=== PATIENT | male | born 1955 | race Caucasian/White ===

== ENCOUNTER 2022-01-02 07:12 | Inpatient (IN) | payer MEDICARE ==
[~2022-01-02] VITALS: Ht 182.9 cm; Wt 80.0 kg
[2022-01-02 08:33] LABS: Hematocrit 42.8 % (37.0-53.0); Hemoglobin 15.2 g/dL (13.5-17.5); Mean Corpuscular HGB Conc 35.5 g/dL (31.5-36.5); Mean Corpuscular Volume 87 fL (80-100); Mean Platelet Volume 9.9 fL (9.1-12.4); Platelet Count 229 K/mm3 (150-400); RDW Coefficient Variation 14.2 % (11.7-14.2); RDW Standard Deviation 45.5 fL (35.1-46.3); Red Blood Cell Count 4.91 M/mm3 (4.30-5.90); White Blood Cell Count 33.41 K/mm3 (4.00-11.30)
[2022-01-02 08:56] LABS: Alanine Aminotransfer (ALT/SGP 38 U/L (12-78); Albumin/Globulin Ratio 0.5 (0.8-1.8); Alk Phos 108 U/L (50-136); Aspartate Aminotrans (AST/SGOT 90 U/L (12-37); Bilirubin, Direct 0.4 mg/dL (0.0-0.3); Bilirubin, Indirect 0.9 mg/dL (0.1-0.7); Bilirubin, Total 1.3 mg/dL (0.1-1.0); Ethanol (Alcohol), Blood, Med <3 mg/dL; Globulin, Blood 4.4 g/dL (2.2-4.0); Magnesium, Blood 1.6 mg/dL (1.6-2.4); Total Protein, Blood 6.4 g/dL (6.4-8.2)
[2022-01-02 08:56] LABS: Base Excess Venous 0.4 mmol/L; Bicarbonate Venous 24.3 mmol/L (24.0-30.0); PCO2 Venous 38.1 mmHg (38-42); PO2 Venous 38.6 mmHg (38-42); pH Blood Venous 7.42 (7.34-7.37)
[2022-01-02 09:15] LABS: Influenza A, PCR NEGATIVE (NEGATIVE); Influenza B, PCR NEGATIVE (NEGATIVE); Resp Syncytial Virus, PCR NEGATIVE (NEGATIVE); SARS-Cov-2 (COVID-19) PCR, MMC NEGATIVE (NEGATIVE)
[2022-01-02 09:29] LABS: BAND PERCENT MAN 66 % (0-8); BASOPHILS PERCENT MAN 0 % (0-2); EOSINOPHILS PERCENT MAN 0 % (0-6); LYMPHOCYTES ABSOLUTE MAN 0.33 K/mm3 (0.84-5.20); LYMPHOCYTES PERCENT MAN 1 % (21-46); METAMYELOCYTE ABSOLUTE MAN 0.33 K/mm3 (0.00-0.00); METAMYELOCYTE PERCENT MAN 1 % (0-0); MONOCYTES PERCENT MAN 3 % (4-13); NEUTROPHILS ABSOLUTE MAN 31.73 K/mm3 (1.96-9.15); SEG NEUTROPHILS PERCENT MAN 29 % (41-73); TOTAL CELLS COUNTED 100
[2022-01-02 09:33] LABS: Calcium, Blood 8.3 mg/dL (8.5-10.1); Creatinine, Blood 0.71 mg/dL (0.60-1.20); Potassium, Blood 3.7 mmol/L (3.5-5.5)
[2022-01-02 09:41] LABS: Source, Urine Straight Cath
[2022-01-02 09:52] LABS: Appearance, Urine Clear (Clear); Bilirubin, Urine Neg (Neg); Blood, Urine 5+ (Neg); Color, Urine Yellow (P-Yellow); Glucose Qualitative, Urine Neg (Neg); Ketones, Urine 1+ (Neg); Leukocyte Esterase, Urine 3+ (Neg); Nitrite, Urine Neg (Neg); Protein, Urine 2+ (Neg); Specific Gravity, Urine 1.015 (1.003-1.022); Urobilinogen, Urine NORM (Normal)
[2022-01-02 10:02] LABS: Bacteria Few /hpf; Squamous Epithelial Cells Few /hpf (Few)
[2022-01-02 10:03] LABS: U Amphetamine Screen DETECTED; U Barbituate Screen Not Detected; U Benzodiazapine Screen Not Detected; U Cocaine Screen Not Detected; U Methadone Screen Not Detected; U Methamphetamine Screen Not Detected
[2022-01-02 10:04] LABS: U Buprenorphine Screen Not Detected; U Cannabinoids Screen Not Detected; U Opiates Screen DETECTED; U Oxycodone Screen Not Detected; U Phencyclidine Screen Not Detected; U Propoxyphene Screen Not Detected
[2022-01-02 14:48] LABS: Anti-Xa UFH, PHA Monitoring <0.10 IU/mL; International Normalized Ratio 1.42; Prothrombin Time Results 14.6 Sec (9.7-11.5)
--- NOTE | 2022-01-02 14:58 | NUR ---
Provider call Dr. Leal called in regards to patients elevated HR 130-160's , Diltiazem 20 mg/hr currently infusing via PICC. Levophed remains on SB. Pt BP 158/121. NS stopped and to be switched to LR. Pt still unable to communicate, garbled speech.
--- NOTE | 2022-01-02 16:00 | NUR ---
Arrival to ICU 16 at 1213 Pt arrives to ICU 16 via gurney accompained by ED nurse. AMS, garbled speech. Moving all extrems, unable to follow directions. Started on Levophed, Diltiazem, and Heparin see flow sheet, infusing via PICC to left upper arm. Levophed placed on SB at 1400. On 3 L NC, SPO2 > 90%. Febrile upon arrival, flushed in apperance. BT active. Wu yin place with dark/clear output. CIWA of 16, tremors, anxious, and agitated. Pulling in lines/tubes/cords, SWB in place. AFIB WITH RVR continues to be present.
--- NOTE | 2022-01-02 16:16 | NUR ---
Provider call- Hypoglycemia Dr. Leal called in regards to glucose of 67. New orders recieved for 1/2 AMP of D50 and recheck in 40 minutes. If still low, start D5 1/2 NS at 75 cc/hr.
--- NOTE | 2022-01-02 17:54 | NUR ---
Updated patients Spoke to Emmanuelle Abrams, , . Pt states has "stopped drinking and coughing" "Lost house and living with sister." Updated on current care being provided and all questions answered.
--- NOTE | 2022-01-02 18:35 | NUR ---
Provider call, elevated HR 130'S Dr. Leal called in regards to elevated HR and provider to place new order for Digoxin.
--- NOTE | 2022-01-02 19:42 | NUR ---
Shift Summary Heparin 15 u/kg/hr, Diltiazem 20 mg/hr, and LR @ 50 ml/hr, infusing via PICC to LEAH. Levophed remains on SB. AMS remains, unable to follow commands, garbled speeched. Moving all extrems, pulling at SWB. LS clear, 2 L via NC, spo2 > 90%. BT active x 4. Pt diaphortic, febrile, 101.8, ice packs to be placed. Wu in place with dark yellow/clear output. Remains in AFIB. BP stable. Dr. Leal contacted by charge nurse, Hawk, in regards to critical blood cluture regards. Spoke to patients and updated on care being provided.
[2022-01-03 04:03] LABS: Hematocrit 36.1 % (37.0-53.0); Hemoglobin 12.7 g/dL (13.5-17.5); LYMPHOCYTES ABSOLUTE AUTO 0.41 K/mm3 (0.84-5.20); LYMPHOCYTES PERCENT AUTO 1 % (21-46); MONOCYTES ABSOLUTE AUTO 0.87 K/mm3 (0.16-1.47); MONOCYTES PERCENT AUTO 2 % (4-13); Mean Corpuscular HGB 30.4 pg (26.0-34.0); Mean Corpuscular HGB Conc 35.2 g/dL (31.5-36.5); Mean Corpuscular Volume 86 fL (80-100); Mean Platelet Volume 9.7 fL (9.1-12.4); Platelet Count 173 K/mm3 (150-400); RDW Coefficient Variation 14.3 % (11.7-14.2); RDW Standard Deviation 45.4 fL (35.1-46.3); Red Blood Cell Count 4.18 M/mm3 (4.30-5.90); White Blood Cell Count 36.66 K/mm3 (4.00-11.30)
[2022-01-03 04:06] LABS: BASOPHILS ABSOLUTE AUTO 0.02 K/mm3 (0.00-0.23); BASOPHILS PERCENT AUTO 0 % (0-2); EOSINOPHILS PERCENT AUTO 0 % (0-6); IMMATURE GRAN ABSOLUTE AUTO 0.47 K/mm3 (0.00-0.10); IMMATURE GRAN PERCENT AUTO 1 % (0-1); NEUTROPHILS ABSOLUTE AUTO 34.89 K/mm3 (1.96-9.15); NEUTROPHILS PERCENT AUTO 95 % (41-73)
[2022-01-03 04:25] LABS: Bun/Creatinine Ratio 17.4 (12.0-20.0); Calcium, Blood 7.7 mg/dL (8.5-10.1); Creatinine, Blood 0.63 mg/dL (0.60-1.20); Potassium, Blood 2.6 mmol/L (3.5-5.5)
[2022-01-03 05:32] LABS: BAND PERCENT MAN 13 % (0-8); BASOPHILS PERCENT MAN 0 % (0-2); EOSINOPHILS PERCENT MAN 0 % (0-6); MONOCYTES ABSOLUTE MAN 2.19 K/mm3 (0.16-1.47); MONOCYTES PERCENT MAN 6 % (4-13); NEUTROPHILS ABSOLUTE MAN 34.46 K/mm3 (1.96-9.15); SEG NEUTROPHILS PERCENT MAN 81 % (41-73); TOTAL CELLS COUNTED 100
--- NOTE | 2022-01-03 07:10 | NUR ---
SHIFT SUMMARY PERIODIC HYPOXIC EVENTS T/O NIGHT. DIFFICULT TO OBTAIN PROPER SPO2 READING ON FINGERS, TOES, EARS, AND FOREHEAD. DEEP ORAL SUCTIONING REQUIRED FREQUENTLY D/T VERY WEAK COUGH AND DIFFICULTY CLEARING SECRETIONS. 4LPM VIA NC WITH ETCO2 18-22. SPO2 87-100%. AFIB W/RVR CONTINUES WITH RATE 100'S-110'S. CARDIZEM REMAINS AT 20MG/HR AND DIGOXIN STARTED LAST NIGHT-ONE LOADING DOSE OF 0.25MG AND ONE SCHEDULED DOSE OF 0.125MG IV ADMINISTERED.
--- NOTE | 2022-01-03 08:29 | NUR ---
ASSUMPTION OF CARE RECEIVED BEDSIDE REPORT FROM CORBY TAPIA AT 0720. PATIENT WITH EYES CLOSED, MOANED A VERBAL RESPONSE AND WAS RESTLESS IN BED. ATTEMPTED TO WAKE PATIENT UP, PATIENT FIRMLY CLOSED EYES AND SAID "NO". DID NOT ENGAGE IN OTHER QUESTIONS. SP02 WITH NO PLETH AND LOW READING, REPOSITIONED FROM FOREHEAD TO FINGER WITH ACCURATE READINGL. 02 AT 6L VIA C02 NC CANNULA WITH CO2 14-16. HEART RATE 120'S WITH CARDIZEM AT 20MG/HR. LR AT 50ML/HR AND KCL INFUSING ORDERED. DR. GIL ROUNDED AT BEDSIDE AT 0800 WITH NEW ORDERS, D/C'D PO ANTIBIOTICS DUE TO NPO STATUS, INCREASED FLUID RATE TO 74ML/HR AND DISCUSSED HEART RATE CONTROL. WILL DRAW ADDITIONAL BLOOD CULTURES AND TREAT PRESCRIBED.
--- NOTE | 2022-01-03 09:40 | NUR ---
CHANGE PATIENT TACHYPNEIC RATE 40-50'S, SP02 85%. 15L OXIMIZER PLACED, ORAL CARE PROVIDED AND SUCTIONED THICK, GONZALEZ SPUTUM VIA ORALLY. CALLED DR. GIL AT 0830 TO REPORT PATIENT'S O2 STATUS CHANGE. STAT ABG AND CXR ORDERED AND COMPLETED. DR. GIL TO ROOM AT 0930, PATIENT RESP RATE DECREASED TO 30'S AT THIS TIME. SP02 90-95% ON 15L OXIMIZER. ECHO CURRENTLY TAKING PLACE AT BEDSIDE. DR. CURRAN CONSULTED AT THIS TIME.
--- NOTE | 2022-01-03 15:27 | NUR ---
UPDATE REVIEWED PATIENT'S RESP STATUS WITH DR. CURRAN. CURRENTLY NO CHANGES TO CARE. WILL CONTINUE TO MONITOR.
--- NOTE | 2022-01-03 16:06 | NUR ---
DR. CURRAN TO ROOM, PATIENT STILL TACHYPNEIC WITH SP02 88% AND ABOVE. DR CURRAN WAS OKAY WITH THAT RANGE AT THIS TIME, REMAINS ON 15L OXYMIZER. PATIENT REPOSITIONED AND OPENED EYES. VERY IRRITABLE AND ANXIOUS WITH STIMULATION. VERBALLY REASSURED PATIENT HE WAS IN THE HOSPITAL AND STATED WE WERE PROVIDING CARE. PATIENT RESPONDED WITH "I CAN SEE THAT". METOPROLOL GIVEN FOR HEART RATE SUSTAINING ABOVE 120 WITH CARDIZEM CONTINUING TO INFUSE. RECTAL PROBE TEMP READING 103, TYLENOL GIVEN WITH ICE PACKS AND FAN TO PATIENT. TEMPORAL READS 101, REPORTED THIS TO DR. UCRRAN. NO NEW ORDERS AT THIS TIME, CONTINUING TO MONITOR.
--- NOTE | 2022-01-03 18:28 | NUR ---
SHIFT SUMMARY PATIENT CONFUSED, OFTEN ANSWERS TO HIS NAME, STARTING TO FOLLOW MORE COMMANDS THROUGH DAY. TACHYPNEIC, TACHYCARDIC, FEBRILE AT START OF SHIFT. ADDRESSED WITH DR. GIL, ORDERS COMPLETED WITH INCREASED FLUIDS AND ABG. 02 WAS INCREASED TO 15L OXYMIZER AND DR. CURRAN WAS CONSULTED. ATIVAN WAS GIVEN CHARTED PER PATIENT HAVING INCREASED AGITATION CAUSING SP02 TO DECREASE TO LOW 80'S. PATIENT RESPONDED WELL WITH DECREASED AGITATION, IMPROVED OXYGEN AND HEART RATE. SUCTIONED THICK BROWN SPUTUM DURING THIS EPISODE WELL, CONTINUED WITH FREQUENT ORAL CARE. CURRENTLY LR AT 125ML/HR, HEPARIN AT 21UNIT/HR AND CARDIZEM AT 20MG/HR. WANG REMAINED PATENT WITH CLEAR, YELLOW URINE. WILL CONTINUE TO MONITOR AND REPORT TO ONCOMING RN.
--- NOTE | 2022-01-03 19:35 | NUR ---
ASSUMED CARE PATIENT LYING IN BED SOMNOLENT AND TACHYPNEIC WITH RR IN MID 40'S. OXYMIZER IN PLACE @ 15LPM WITH SPO2 94%. FRICTION RUB AUSCULTATED IN KLAUS, LLL, RML, AND RLL. RUL CLEAR. MONITOR SHOWS A TACHYCARDIC RHYTHM, WHETHER THAT BE SINUS TACH OR AFIB RVR-RATE 100-110. APPEARS REGULAR AT TIMES. ECTOPY PRESENT. BP STABLE AT 122/63 MAP 77. DIFFICULT TO AROUSE, BUT UPON REPEATED STIMULATION HE AWAKENS AND SHOUTS "WHAT". DOES NOT ANSWER ORIENTATION QUESTIONS AND MOANS W/ GARBLED SPEECH INSTEAD. MOVES HEAD BACK AND FORTH BUT WILL NOT OPEN EYES TO COMMAND. WANG PATENT AND DRAINING ORANGE CLOUDY URINE TO GRAVITY. RECTAL TEMP PROBE IN PLACE SHOWING TEMP GREATER THAN 102F. GTTS: HEPARIN 21 UNITS/HR, CARDIZEM @ 20MG/HR, AND LR @ 125ML/HR. REPORT COMPLETED WITH CORBY Cao RN.
--- NOTE | 2022-01-03 21:46 | NUR ---
DESATURATION IN SPO2 AFTER CLEANING BM AND REPOSITIONING PATIENT TO LT SIDE, SPO2 DECREASED FROM MID 90'S TO 85-87% ON 15LPM VIA OXYMIZER. ATTEMPTED MOVING SPO2 PROBE, ORAL AND DEEP ORAL SUCTIONING WITH NO IMPROVEMENT. REPOSITIONED TO RT SIDE AND SPO2 IMPROVED FROM 85-87% TO 88-89%. SWITCHED FROM OXYMIZER 15LPM TO AIRVO 60LPM 83%. SPO2 NOW 97-100%.
[2022-01-04 03:28] LABS: Hematocrit 33.6 % (37.0-53.0); Hemoglobin 11.7 g/dL (13.5-17.5); Mean Corpuscular HGB 30.5 pg (26.0-34.0); Mean Corpuscular HGB Conc 34.8 g/dL (31.5-36.5); Mean Corpuscular Volume 88 fL (80-100); Mean Platelet Volume 9.6 fL (9.1-12.4); Platelet Count 111 K/mm3 (150-400); RDW Coefficient Variation 14.5 % (11.7-14.2); RDW Standard Deviation 46.3 fL (35.1-46.3); Red Blood Cell Count 3.84 M/mm3 (4.30-5.90); White Blood Cell Count 30.07 K/mm3 (4.00-11.30)
[2022-01-04 03:53] LABS: Bun/Creatinine Ratio 21.7 (12.0-20.0); Calcium, Blood 7.6 mg/dL (8.5-10.1); Creatinine, Blood 0.64 mg/dL (0.60-1.20); Potassium, Blood 2.9 mmol/L (3.5-5.5)
--- NOTE | 2022-01-04 07:44 | NUR ---
SHIFT SUMMARY PATIENT OXYGEN REQUIREMENTS INCREASED FROM 15L OXYMIZER TO AIRVO 60LPM 84%. RR REMAINS 40'S-50'S. FEBRILE-TYLENOL AR 650MG IMPROVED TEMP FOR SHORT PERIOD. HEPARIN INCREASED AND BOLUSED PER ORDERS-SEE EMAR. RHYTHM NOW SINUS TACH MOST OF THE TIME WHEN LOWER RATE-DIFFICULT TO ANALYZE AT FASTER RATES. RATE HIGH 90'S AT LOWEST. INCREASED ECTOPY. BP STABLE. CARDIZEM @ 20MG/HR. STILL ANSWERING WITH SIMPLE STATEMENTS SUCH "WHAT" AND "WHAT ARE YOU DOING THAT FOR". VERY DIFFICULT TO AROUSE. SOMNOLENT AND OBTUNDED. 1400 URINE OUT. 2 BM DURING SHIFT. POTASSIUM AND CALCIUM REPLACED THIS AM FOR LABS OF K 2.9 AND CA 7.6. REPORT COMPLETED WITH SKIP Culp RN.
[2022-01-04 08:17] LABS: Vancomycin, Trough 12.8 ug/mL (5.0-10.0)
--- NOTE | 2022-01-04 12:01 | NUR ---
REASSESSMENT PT CONTINUES ON THE AIRVO WITH RR IN THE 40-60S. FIO2 HAD TO BE TURNED UP THIS MORNING FOR SPO2 85%, BUT NOW HAS BEEN TITRATED BACK DOWN A LITTLE BIT. HIS LUNGS REMAIN COARSE. PT RESPONDS TO PAINFUL STIMULI. WHEN TRYING TO DO ORAL CARE HE BITES DOWN ON THE SWAB AND TELLS WHOMEVER TO "STOP DOING THAT." HE FOLLOWS SOME SIMPLE COMMANDS. ORAL CARE AT NOON DONE WITH BITE BLOCK. HE YELLS OUT WITH ANY MOVEMENT THEN GOES BACK TO SLEEP ONCE LEFT ALONE. AFIB WITH RATE IN THE LOW 100S CURRENTLY, BP STABLE. DILTIAZEM STILL INFUSING ALONG WITH HEPARIN. DR. GIL AWARE OF PT'S CURRENT PLT COUNT. SMALL SMEAR OF BM TODAY. URINE WITH LOTS OF SEDIMENT. TYELNOL SUPPOSITORY GIVEN FOR TEMP 103 F AND ICE PACKS PLACED IN ARMPITS AND BEHIND NECK WELL.
--- NOTE | 2022-01-04 15:33 | NUR ---
INTUBATION PT'S OXYGEN NEEDS HAVE SLOWLY BEEN CREEPING UP THROUGHOUT THE DAY. AROUND 1330 PT'S SPO2 DROPPED TO 80%. AIRVO INCREASED TO 100% , BOOSTED IN BED. PT YELLED OUT IN PAIN WHEN BOOSTED AND LOTS OF MUCUS VISUALIZED IN THE BACK OF PT'S MOUTH. SUCTIONED PT BEST POSSIBLE USING BITE BLOCK BUT SPO2 REMAINED IN THE LOW 80S. RT NOTIFIED. CALLED DR. GIL AND RECEIVED ORDER FOR CRITICAL CARE CONSULT. CALLED DR. CURRAN WHO SAID TO PREPARE TO INTUBATE. DR. CURRAN AT THE BEDSIDE AT 1350. 4MG VERSED AND 50MCG PROPOFOL GIVEN AT [address] CURRAN'S ORDERS. 1354 GLIDESCOPE IN. 1355 50MCG PROPOFOL GIVEN AGAIN, STYLET OUT AND BAGGING PT. POSITIVE COLOR CHANGE AND BILATERAL BREATH SOUNDS. 8.0 ETT AND 25 AT TEETH. 1357 BAGGING PT WITH PEEP VALVE AT 12. RT GOT PT HOOKED UP TO THE VENT. OGT PLACED, AIR AUSCULTATED OVER ABDOMEN. ETT CONFIRMED VIA XRAY BY DR. CURRAN. PT'S FIO2 TITRATED DOWN OVER THE NEXT HOUR TO 35%. PROPOFOL INFUSING AT 20MCG/KG/MIN. INCREASED TO 40 DUE TO PT GRIMACING AND AND PULLING ON RESTRAINTS THAT WERE PLACED WHEN PT WAS INTUBATED. SPUTUM CULTURE OBTAINED AND SENT BY RT. PT'S CALLED BY DR. GIL AND UPDATED ON INTUBATION.
--- NOTE | 2022-01-04 15:50 | NUR ---
CARE CONFERENCE: Spoke to pt's Emmanuelle by phone this afternoon. I introduced myself as Palliative Care nurse and tell here i'm here to provide an extra layer of support during this time. She states she's thankful for that. She tells me she and the patient have 1 adult child together, and she's and living in [place]. She isn't planning on telling her about her dad unless things "take a turn for the worse". She states she also personally isn't planning to come in to see her unless he gets "worse". I asked if I can call her again tomorrow to check in on her, she says, "Yes please!" I will call and check in on her again tomorrow for another therapeutic phone call.
[2022-01-04 16:02] LABS: PCO2 Arterial 27.4 mmHg (35-45); pH Blood Arterial 7.52 (7.35-7.45)
--- NOTE | 2022-01-04 17:41 | NUR ---
SHIFT SUMMARY PT GOT INTUBATED TODAY FOR DESATURATING WHILE ON 100% FIO2 VIA OXYMIZER. HE HAS BEEN DOING WELL SINCE INTUBATION WITH FIO2 DOWN TO 35%. HIS RATE READS 22, BUT WHEN LOOKING AT THE PT HE APPEARS TO TAKE SMALL SHALLOW BREATHS THAT THE VENTILATOR ISN'T FULLY PICKING UP SO HIS ACTUAL RATE IS CLOSER TO 40. LUNGS REMAIN COARSE. THICK YELLOW SPUTUM SUCTIONED OUT WHEN FIRST INTUBATED, BUT NO MORE SPUTUM SINCE THEN. REMAINS IN AFIB, RATE IN THE LOW 100S NOW. BP REMAINS STABLE. URINE ORANGE/YELLOW WITH SOME SEDIMENT. LARGE BM AFTER INTUBATION THAT WAS BLACK AND LOOSE. ASPIRATION FROM OGT HAS SLIGHT RED TINGE. DR. CURRAN NOTIFIED OF THIS AND WANTS TO CONTINUE TO MONITOR FOR NOW, LEAVE HEPARIN GOING. PT REMAINS FEBRILE, ICE PACKS IN PLACE THROUGHOUT THE DAY. CONTINUING TO MONITOR.
--- NOTE | 2022-01-04 20:00 | NUR ---
PATIENT INTUBATED AND SEDATED WITH PROPOFOL 40 MCG, GRIMACING AND INCREASED RESP WITH REPOSITIONING AND WITH ORAL CARE. ETT IN PLACE WITH VENT AC/VC 20, TV 500, PEEP 5, FIO2 35% SUCTIONING THICK GONZALEZ SPUTUM. TEMP 102.2 PER RECTAL PROBE. ICE PACKS IN PLACE. PLAN TO GIVE TYLENOL PER OG AND CLAMP OG. CARDIZEM 20 FOR AFIB RVR, HEPARIN 29 UNITS PER PHARMACY.
[2022-01-05 03:46] LABS: Source, Urine Foley catheter
[2022-01-05 03:48] LABS: Blood, Urine 5+ (Neg); Glucose Qualitative, Urine Neg (Neg); Ketones, Urine Neg (Neg); Leukocyte Esterase, Urine 3+ (Neg); Nitrite, Urine Neg (Neg); Protein, Urine 2+ (Neg); Urobilinogen, Urine 1+ (Normal)
[2022-01-05 03:53] LABS: Appearance, Urine Hazy (Clear); Bilirubin, Urine 1+ (Neg); Color, Urine Amber (P-Yellow)
[2022-01-05 03:55] LABS: Amorphous Light (0-Heavy); Bacteria Mod /hpf; Squamous Epithelial Cells Rare /hpf (Few); White Blood Cells, Urine TNTC /hpf (0-5)
[2022-01-05 04:27] LABS: Hematocrit 28.7 % (37.0-53.0); Mean Corpuscular HGB 30.8 pg (26.0-34.0); Mean Corpuscular HGB Conc 34.8 g/dL (31.5-36.5); Mean Corpuscular Volume 88 fL (80-100); Mean Platelet Volume 11.1 fL (9.1-12.4); Platelet Count 82 K/mm3 (150-400); RDW Coefficient Variation 14.6 % (11.7-14.2); RDW Standard Deviation 47.7 fL (35.1-46.3); Red Blood Cell Count 3.25 M/mm3 (4.30-5.90); White Blood Cell Count 19.95 K/mm3 (4.00-11.30)
[2022-01-05 05:00] LABS: Magnesium, Blood 2.4 mg/dL (1.6-2.4)
[2022-01-05 05:07] LABS: Albumin, Blood 1.7 g/dL (3.4-5.0); Anion Gap 10 mmol/L (6-16); Blood Urea Nitrogen 15 mg/dL (8-24); Bun/Creatinine Ratio 22.3 (12.0-20.0); CO2, Blood 23 mmol/L (21-32); Calcium, Blood 7.9 mg/dL (8.5-10.1); Chloride, Blood 103 mmol/L (98-108); Creatinine, Blood 0.67 mg/dL (0.60-1.20); Glomerular Filtration Rate 104 (60-); Glucose, Blood 106 mg/dL (70-99); Phosphorus, Blood 0.8 mg/dL (2.5-4.9); Sodium, Blood 136 mmol/L (136-145)
--- NOTE | 2022-01-05 05:31 | NUR ---
DOCTOR BINA NOTIFIED OF AM LABS WITH CONTINUED DROPPING OF H&H AND PLT AND PATIENT HAVING BLACK STOOL DURING BED BATHBATH . KPHOS ORDER OBTAINED AND HEPARIN DC'D
--- NOTE | 2022-01-05 06:26 | NUR ---
SUMMARY PATIENT REMAINS INTUBATED AND SEDATED PROPOFOL 40 MCG CONTINUES, PATIENT GRIMACES WITH CARE AND REACHES TO ETT WHEN UNRESTRAINED, YET CONTINUES TO NOT FOLLOW DIRECTIONS AND KEEPS EYES CLOSED. ETT IN PLACE WITH VENT AC 20 TV 500 PEEP 5 FIO2 35% SUCTIONING THICK GONZALEZ SPUTUM. OG IN PLACE MEDICATED TWICE WITH TYLENOL FOR FEVER. CARDIZEM TITRATED DOWN TO 5 MG/HR. HEPARIN DRIP NOW OFF DUE TO DROP IN H&H AND PLT'S AND PASSING BLACK STOOL TONIGHT. KPHOS INFUSING.
--- NOTE | 2022-01-05 18:06 | NUR ---
SUMMARY PT INTUBATED AND SEDATED WITH PROPOFOL. PT GRIMACES TO PAINFUL STIMULUS AND WILL PURPOSEFULLY REACH FOR ETT WHEN HANDS ARE NOT IN RESTRAINTS. STARTING TO OPEN EYE'S WITH CARE THIS EVENING. NOT FOLLOWING COMMANDS. CARDIZEM GTT STOPPED TODAY. PT HAS HAD SEVERAL LIQUID STOOL. RECTAL TUBE PLACED. BM DOES NOT APPEAR BLACK. TUBE FEED STARTED TODAY. NO OTHER CHANGES THIS SHIFT.
--- NOTE | 2022-01-05 21:07 | NUR ---
Assumed Care. Luis is very aggitated, opening eyes, bitting down on the ETT tube, coughing, Shaking from head to toe. Resp increased to 25-30, RT at bedside adjusting vent to help compensate, does not follow direction. Increased propofol from 40 to 60, no change, had to increase to 100mcq in order to help calm down. Suki TAPIA called Dr. Ramon, order for haldol and Ativan. Temp 101.8 and climbing. Skin hot. LS coarse t/o. large white claire secretions suctioned from ETT and oral cavity. Swallow and gag noted. He continued to turn head and fight suction. Ice packs and cooling blanket and fan as the temp reach 103.2, currently its decreased to 102.6. HR sinus tach in the 130-140's, now back to 120's. Skin hot. No skin breakdown. Temp barreto in place clear yellow. Rectal tube, no stool at this time. SCD's on. Will continue to monitor.
--- NOTE | 2022-01-05 22:35 | NUR ---
Temp has decreased to 100.1, removed ice packs. cooling blanket in place. Will continue to monitor vitals for changes and medicate appropriatly.
[2022-01-06 04:19] LABS: Hematocrit 29.7 % (37.0-53.0); Hemoglobin 10.2 g/dL (13.5-17.5); Mean Corpuscular HGB 30.1 pg (26.0-34.0); Mean Corpuscular HGB Conc 34.3 g/dL (31.5-36.5); Mean Corpuscular Volume 88 fL (80-100); Mean Platelet Volume 10.8 fL (9.1-12.4); Platelet Count 104 K/mm3 (150-400); RDW Coefficient Variation 14.8 % (11.7-14.2); RDW Standard Deviation 48.1 fL (35.1-46.3); Red Blood Cell Count 3.39 M/mm3 (4.30-5.90); White Blood Cell Count 18.36 K/mm3 (4.00-11.30)
[2022-01-06 05:11] LABS: BAND PERCENT MAN 2 % (0-8); BASOPHILS PERCENT MAN 0 % (0-2); EOSINOPHILS PERCENT MAN 0 % (0-6); LYMPHOCYTES ABSOLUTE MAN 0.55 K/mm3 (0.84-5.20); LYMPHOCYTES PERCENT MAN 3 % (21-46); MONOCYTES ABSOLUTE MAN 0.18 K/mm3 (0.16-1.47); MONOCYTES PERCENT MAN 1 % (4-13); MYELOCYTE ABSOLUTE MAN 0.18 K/mm3 (0.00-0.00); MYELOCYTE PERCENT MAN 1 % (0-0); NEUTROPHILS ABSOLUTE MAN 17.44 K/mm3 (1.96-9.15); SEG NEUTROPHILS PERCENT MAN 93 % (41-73); TOTAL CELLS COUNTED 100
[2022-01-06 05:18] LABS: Albumin, Blood 1.4 g/dL (3.4-5.0); Anion Gap 9 mmol/L (6-16); Blood Urea Nitrogen 15 mg/dL (8-24); Bun/Creatinine Ratio 20.2 (12.0-20.0); CO2, Blood 23 mmol/L (21-32); Chloride, Blood 105 mmol/L (98-108); Creatinine, Blood 0.74 mg/dL (0.60-1.20); Glomerular Filtration Rate 101 (60-); Glucose, Blood 102 mg/dL (70-99); Phosphorus, Blood 0.8 mg/dL (2.5-4.9); Potassium, Blood 3.1 mmol/L (3.5-5.5); Sodium, Blood 137 mmol/L (136-145)
--- NOTE | 2022-01-06 06:10 | NUR ---
Shift Summary: Opens eyes to verbal stimuli. Pupils 2mm and reactive. Fights against suction and ETT tube. Start of shift he became very aggitated, increase in respiration, pulling against restraints. Temp quickly climbed to 103.1 RT had to continue to adjust pressures on the vent to prevent failure.He was shaking from head to toe. Temp returned to normal more than an hour later, using tylenol, cooling blanket. LS very coarse, large amounts of claire secretions obtained on suctioning. Gag, Cough and swallow noted. Occational grimace with movements. Propofol was increased to 100mcq for short period of time when hes fever shot up and respirtory rate was in the 30's, Sats dropped to 80's at this time. Vent setting currently 16/500/5/35%. HR afib rate 130-140's. BP held during this time until temp returned to normal then he was 90's., No edema. Wu output sheryl 1500. Rectal tube removed due to stool to thick and small amounts. skin pwd, no breakdown. Blood cultures positive gram cocci in clustures. Critical Phos at 0.[address] Ramon, order for kphos. LR and TKO fluids infusing.Restraints remain in place. [facility] HR afib rate was 130-140's
[2022-01-06 15:03] LABS: Albumin, Blood 1.4 g/dL (3.4-5.0); Anion Gap 8 mmol/L (6-16); Blood Urea Nitrogen 15 mg/dL (8-24); Bun/Creatinine Ratio 22.7 (12.0-20.0); CO2, Blood 23 mmol/L (21-32); Calcium, Blood 7.7 mg/dL (8.5-10.1); Chloride, Blood 109 mmol/L (98-108); Creatinine, Blood 0.66 mg/dL (0.60-1.20); Glomerular Filtration Rate 104 (60-); Glucose, Blood 106 mg/dL (70-99); Phosphorus, Blood 1.5 mg/dL (2.5-4.9); Potassium, Blood 3.4 mmol/L (3.5-5.5); Sodium, Blood 140 mmol/L (136-145)
--- NOTE | 2022-01-06 18:06 | NUR ---
SUMMARY PT INTUBATED AND SEDATED WITH PROPOFOL. WILL AWAKEN AT TIMES AND OPEN EYE'S. LOOKS PANICKED WHEN AWAKE BUT WITH REASSURANCE HE WILL SETTLED DOWN AND GO BACK TO RESTING. STILL HAVING THICK GONZALEZ SPUTUM. TMAX 102 TODAY THAT IMPROVED WITH TYLENOL AND ICE PACKS. TOLERATING TUBE FEED WITH NO RESIDUALS ALL DAY. DR. CURRAN NOTIFIED FOR LOW K AND PHOS, NEW ORDERS FOR KPHOS 30MMOL. NO OTHER CHANGES THIS SHIFT.
--- NOTE | 2022-01-06 20:00 | NUR ---
Assumed Care. Light sedation with propofol 50mcq/hr. Reponds to verbal stimuli, opens eyes, pupils pinpoint but reactive. Follows commands. Nods head to yes no questions, not fighting tube. Gross motor movements all extremities. LS course, clears some with suction via ETT tube. Little large amounts. AC Vent settings 16/500/5/35%. Tolerating well. Sats >90%. Afib rate 110's, BP WNL. No edema. Abd soft, BT active. Small BM noted. Linen changed and attends placed. Wu with sheryl urine output, clear. IVF infusing, SCD's on. Restraints checked.
[2022-01-07 03:41] LABS: Hematocrit 30.1 % (37.0-53.0); Hemoglobin 10.4 g/dL (13.5-17.5); Mean Corpuscular HGB 30.4 pg (26.0-34.0); Mean Corpuscular HGB Conc 34.6 g/dL (31.5-36.5); Mean Corpuscular Volume 88 fL (80-100); Mean Platelet Volume 10.8 fL (9.1-12.4); Platelet Count 156 K/mm3 (150-400); RDW Coefficient Variation 15.1 % (11.7-14.2); RDW Standard Deviation 49.1 fL (35.1-46.3); Red Blood Cell Count 3.42 M/mm3 (4.30-5.90); White Blood Cell Count 16.55 K/mm3 (4.00-11.30)
[2022-01-07 03:55] LABS: Albumin, Blood 1.3 g/dL (3.4-5.0); Anion Gap 7 mmol/L (6-16); Blood Urea Nitrogen 15 mg/dL (8-24); Bun/Creatinine Ratio 23.4 (12.0-20.0); CO2, Blood 25 mmol/L (21-32); Calcium, Blood 7.4 mg/dL (8.5-10.1); Chloride, Blood 108 mmol/L (98-108); Creatinine, Blood 0.64 mg/dL (0.60-1.20); Glomerular Filtration Rate 105 (60-); Glucose, Blood 111 mg/dL (70-99); Phosphorus, Blood 2.4 mg/dL (2.5-4.9); Potassium, Blood 3.2 mmol/L (3.5-5.5); Sodium, Blood 140 mmol/L (136-145)
[2022-01-07 04:48] LABS: BAND PERCENT MAN 18 % (0-8); BASOPHILS PERCENT MAN 0 % (0-2); EOSINOPHILS ABSOLUTE MAN 0.16 K/mm3 (0.00-0.68); EOSINOPHILS PERCENT MAN 1 % (0-6); LYMPHOCYTES ABSOLUTE MAN 0.33 K/mm3 (0.84-5.20); LYMPHOCYTES PERCENT MAN 2 % (21-46); METAMYELOCYTE ABSOLUTE MAN 0.16 K/mm3 (0.00-0.00); METAMYELOCYTE PERCENT MAN 1 % (0-0); MONOCYTES PERCENT MAN 0 % (4-13); MYELOCYTE ABSOLUTE MAN 0.16 K/mm3 (0.00-0.00); MYELOCYTE PERCENT MAN 1 % (0-0); NEUTROPHILS ABSOLUTE MAN 15.72 K/mm3 (1.96-9.15); SEG NEUTROPHILS PERCENT MAN 77 % (41-73); TOTAL CELLS COUNTED 100
--- NOTE | 2022-01-07 05:54 | NUR ---
Shift Summary: Lightly Sedated on Propofol 50mcq/hr. Opens eyes to verbal stimuli, tracks, able to nod yes and no to questions, follows commands, moves extremities. Good gag, swallow and cough. LS clear, dim in bases. AC vent settings 16/500/5/35%. Secretions are moderate to large at times, white-claire color. Tolerating vent better. Afib rate 90-110's.BP soft. Febrile highest 100.4. Tylenol given once. Cooling blanket has remained on. Abd soft, 2 soft BM this shift. Wu Output sheryl 1200. Skin remains intact. WBC decreased to 16.55. Potassium 3.2, phos 2.4 much improved from previous day. No other changes. Will Report to day shift.
--- NOTE | 2022-01-07 07:00 | NUR ---
ASSUME CARE: I have assumed care of this patient.
--- NOTE | 2022-01-07 18:29 | NUR ---
SHIFT SUMMARY: NEURO: Pt currently on 70 mg/kg/min of propofol. He has received two PRN doses of versed to assist with turning and pt cares. Pt opens eyes, moves all extremities, and attempts to sit up. Tmax 101; two doses of PRN tylenol given and cooling blanket placed under pt. RESPIRATORY: intubated with 8.0 tube 25cm at the teeth; vent settings AC/VC 16/50/5/35%. Pt has been overbreathing vent with RR in high 20s. Continuous ETCO2 mid 20's. CARDIAC: Heart rhythm converting from NSR to Afib to aflutter in 150s. Cardizem started. BP's have been soft, norepinephrine spiked and on standbay. GI/: 3x liquid BM today; rectal tube placed. Tube feeds running at goal
--- NOTE | 2022-01-07 20:00 | NUR ---
Assumed Care. Opens eyes to name. Pupils [place] sluggish. Follows commands, sale professional digital marketing weak, does wiggles toes. Falls right back to sleep. Irritable when being messed with. LS clear, AC vent setting 16/500/5/35%, Moderate claire secretions from ETT suction. ETT 03/24. Sats 95%. Propofol was at 70, increased to 100 during postioning him and for cleaning him up from loose BM that is passing around rectal tube. Flushed tube mild leakage noted. Repostioned tube. Gets very aggitated with adjustments. Afib running 110-120's. Cardizem infusing 10mcq. Levo on SB for soft BP Maps 60-65 currently. Febrile 99.6. Cooling blanket underneath. Abdomin is distended, moderate, hyperactive BT. Cath patent and draining. Bottom getting red from loose stools. LR at 75, NS KVO. Will continue to monitor.
--- NOTE | 2022-01-07 22:53 | NUR ---
Converted to Sinus around 2149, Rate is in the 80's BP has been in the 100's. Currently decreased Cardizem to 5. Few PVC's have been noted. BP in the 80's.
--- NOTE | 2022-01-07 23:48 | NUR ---
Cardizem on SB. Versed given for increase in irritabily evidence of grimacing and frawns when positioned or doing anything with him. Checked for stool, no BM at this time. Propofol increased to 70 till versed was given. Rate is currently in the 70's. Rhythm sinus with occational venticular beats captured. will monitor.
[2022-01-08 03:33] LABS: PCO2 Arterial 28.8 mmHg (35-45); PO2 Arterial 76.8 mmHg (80-100); pH Blood Arterial 7.52 (7.35-7.45)
[2022-01-08 05:03] LABS: Hemoglobin 9.5 g/dL (13.5-17.5); Mean Corpuscular HGB Conc 33.9 g/dL (31.5-36.5); Mean Corpuscular Volume 88 fL (80-100); Mean Platelet Volume 10.5 fL (9.1-12.4); Platelet Count 210 K/mm3 (150-400); RDW Coefficient Variation 15.5 % (11.7-14.2); RDW Standard Deviation 50.2 fL (35.1-46.3); Red Blood Cell Count 3.17 M/mm3 (4.30-5.90); White Blood Cell Count 13.92 K/mm3 (4.00-11.30)
[2022-01-08 05:30] LABS: Albumin, Blood 1.2 g/dL (3.4-5.0); Albumin/Globulin Ratio 0.3 (0.8-1.8); Bilirubin, Total 1.8 mg/dL (0.1-1.0); Bun/Creatinine Ratio 26.2 (12.0-20.0); Calcium, Blood 7.5 mg/dL (8.5-10.1); Creatinine, Blood 0.57 mg/dL (0.60-1.20); Globulin, Blood 3.9 g/dL (2.2-4.0); Magnesium, Blood 2.6 mg/dL (1.6-2.4); Phosphorus, Blood 2.5 mg/dL (2.5-4.9); Total Protein, Blood 5.1 g/dL (6.4-8.2)
[2022-01-08 05:35] LABS: BAND PERCENT MAN 17 % (0-8); BASOPHILS PERCENT MAN 0 % (0-2); EOSINOPHILS ABSOLUTE MAN 0.27 K/mm3 (0.00-0.68); EOSINOPHILS PERCENT MAN 2 % (0-6); LYMPHOCYTES ABSOLUTE MAN 0.13 K/mm3 (0.84-5.20); LYMPHOCYTES PERCENT MAN 1 % (21-46); METAMYELOCYTE ABSOLUTE MAN 0.13 K/mm3 (0.00-0.00); METAMYELOCYTE PERCENT MAN 1 % (0-0); MONOCYTES ABSOLUTE MAN 0.41 K/mm3 (0.16-1.47); MONOCYTES PERCENT MAN 3 % (4-13); NEUTROPHILS ABSOLUTE MAN 12.94 K/mm3 (1.96-9.15); SEG NEUTROPHILS PERCENT MAN 76 % (41-73); TOTAL CELLS COUNTED 100
--- NOTE | 2022-01-08 06:38 | NUR ---
Shift Summary: Sedated on propofol rate 60-70. Easily awakened with verbal stimuli, gets irritable easily and aggitated by touch, does not like to be turned. Gave versed x1. Will follow commands, stem roller weak, wiggles toes. Cough, Gag, and swallow intact. LS clear, secretions white/claire, moderate amount. AC vent settings have remained the same 16/500/5/35%. Tends to breath over the vent. HR converted out of afib around 2130, Cardizem gtt was placed on SB shortly afterwards. Contiues to have Multiform PVC's, small run of Vtach 4 beats. Rate is currently in the 90's. BP have increased and maintained a MAP saji >65. febrile TMax-100 this shift. Rectal tube removed as stool continued to plug it. Attends placed had only 1 other BM after that. Urine still dark to sheryl color in barreto. No other changes to report.
--- NOTE | 2022-01-08 07:00 | NUR ---
ASSUME CARE: I have assumed care of this patient.
--- NOTE | 2022-01-08 09:40 | NUR ---
SBT: Dr Ro at bedside; SBT initiated.
--- NOTE | 2022-01-08 10:18 | NUR ---
END SBT: SBT stopped. Pt's respiratory rate up to 60s
--- NOTE | 2022-01-08 11:12 | NUR ---
PHONE CALL: This RN spoke with pt's , Emmanuelle, over the phone and updated her on pt status.
--- NOTE | 2022-01-08 11:50 | NUR ---
CT: Radiology called for CT plan; no ETA at this time.
--- NOTE | 2022-01-08 15:14 | NUR ---
ASSUMED CARE OF PT, REPORT RCV'D FROM REGINA LINARES. PT INTUBATED AND SEDATED. VENT SETTINGS AC 16/500/5/35%. PROPOFOL @ 60 MCG/KG/MIN. VSS AT THIS TIME.
--- NOTE | 2022-01-08 17:35 | NUR ---
SHIFT SUMMARY PT REMAINS INTUBATED AND LIGHTLY SEDATED. VENT SETTINGS REMAIN AC 16/500/5/35%. PROPOFOL @ 60 MCG/KG/MIN, PT LIGHTLY SEDATED. OPENS EYES TO VERBAL STIMULI, FOLLOWS COMMANDS, ATTEMPTS TO MOUTH WORDS AROUND THE TUBE. 1200 ML URINARY OUTPUT. 100 ML LIQUID STOOL FROM RECTAL TUBE. TMAX 100.7. WILL REPORT TO ONCOMING NURSE.
--- NOTE | 2022-01-08 20:27 | NUR ---
ASSUMED CARE OF PT PT. AWAKENS EASILY TO VERBAL STIMULI, RR INCREASES AND PT PULLS AGAINST RESTRAINTS. PT CURRENTLY ON PROPOFOL AT 60MCG/KG/MIN LS CLEAR AT THIS TIME,VENT SETTINGS AC 16, TV 500, PEEP 5, 35%FIO2. COPIOUS AMT OF ORAL SECRETIONS SUCTIONED WITH ORAL CARE. PT. HAS TF INFUSING, PIVOT 1.5 AT GOAL OF 35ML WITH MINIMAL RESIDUALS. LARGE AMT OF LIQUID BROWN STOOL, RECTAL TUBE IN PLACE, HOWEVER LEAKING. RECTAL TUBE REPOSITIONED, LINENS CHANGED. PT REACHING FOR TUBE DURING REPOSTIONING. HALDOL GIVEN IN ADJUNCT TO SEDATION. PT VSS AT THIS TIME. ,
--- NOTE | 2022-01-08 22:18 | NUR ---
CALL TO DR. MORRIS PT. HAS FACIAL GRIMACE AND WAKENS WITH STIMULI, REACHING FOR ETT WHILE CHANGING LINENS. CALL FOR SEDATION ADJUNCT. ATIVAN PRN ORDERED.
[2022-01-08 23:29] LABS: Vancomycin, Trough 17.4 ug/mL (5.0-10.0)
[2022-01-09] LABS: C DIFFICILE DNA NEGATIVE (Negative)
--- NOTE | 2022-01-09 | NUR ---
ASSUME CARE: I have assumed care of this patient.
[2022-01-09 05:28] LABS: Hematocrit 25.6 % (37.0-53.0); Hemoglobin 9.5 g/dL (13.5-17.5); Mean Corpuscular HGB 32.9 pg (26.0-34.0); Mean Corpuscular HGB Conc 37.1 g/dL (31.5-36.5); Mean Corpuscular Volume 89 fL (80-100); Mean Platelet Volume 10.5 fL (9.1-12.4); Platelet Count 234 K/mm3 (150-400); RDW Coefficient Variation 16.1 % (11.7-14.2); RDW Standard Deviation 52.4 fL (35.1-46.3); Red Blood Cell Count 2.89 M/mm3 (4.30-5.90)
[2022-01-09 05:54] LABS: BAND PERCENT MAN 13 % (0-8); BASOPHILS ABSOLUTE MAN 0.14 K/mm3 (0.00-0.23); BASOPHILS PERCENT MAN 1 % (0-2); EOSINOPHILS PERCENT MAN 0 % (0-6); LYMPHOCYTES ABSOLUTE MAN 0.44 K/mm3 (0.84-5.20); LYMPHOCYTES PERCENT MAN 3 % (21-46); METAMYELOCYTE ABSOLUTE MAN 0.29 K/mm3 (0.00-0.00); METAMYELOCYTE PERCENT MAN 2 % (0-0); MONOCYTES ABSOLUTE MAN 0.14 K/mm3 (0.16-1.47); MONOCYTES PERCENT MAN 1 % (4-13); MYELOCYTE ABSOLUTE MAN 0.14 K/mm3 (0.00-0.00); MYELOCYTE PERCENT MAN 1 % (0-0); NEUTROPHILS ABSOLUTE MAN 13.52 K/mm3 (1.96-9.15); SEG NEUTROPHILS PERCENT MAN 79 % (41-73); TOTAL CELLS COUNTED 100
[2022-01-09 06:07] LABS: Magnesium, Blood 2.5 mg/dL (1.6-2.4)
--- NOTE | 2022-01-09 06:15 | NUR ---
SHIFT SUMMARY: Neuro: Pt continues on 60 mcg/kg/min of propofol; he opens his eyes to sound and is moving all extremities. Pt has received one dose of PRN tylenol for tmax of 100.8. Cardiac: NSR to sinus tach Respiratory: Vent settings unchanged AC 16/500/5/35% ; coarse lung sounds that clear with in-line suctioning. GI/: Wu catheter in place and continues to drain sheryl urine. Rectal tube draining liquid stool and leaking around. Total fluid balance +477. Skin: No new breakdown noted. Sandra area red and irritated
[2022-01-09 06:21] LABS: Albumin/Globulin Ratio 0.2 (0.8-1.8); Bilirubin, Total 1.7 mg/dL (0.1-1.0); Bun/Creatinine Ratio 28.1 (12.0-20.0); Calcium, Blood 6.4 mg/dL (8.5-10.1); Creatinine, Blood 0.53 mg/dL (0.60-1.20); Phosphorus, Blood 2.4 mg/dL (2.5-4.9); Potassium, Blood 3.8 mmol/L (3.5-5.5)
--- NOTE | 2022-01-09 08:30 | NUR ---
INITIAL ASSESSMENT PATIENT INTUBATED AND ON SEDATION. PATIENT FOLLOWING SIMPLE COMMANDS. PATIENT WEAK BUT ABLE TO MOVE ALL EXTREMITIES. CORE TEMP 100.3 DEGREES FAHRENHEIT. PATIENT DENIES PAIN. PATIENT ON VENT SETTINGS AC 16, TV 500, PEEP 5 AND FIO2 OF 30%. KLAUS COARSE; ALL OTHER LUNG LOBES CLEAR TO AUSCULTATION. SMALL AMOUNT OF THICK, PINK SPUTUM NOTED WITH ETT SUCTIONING. PATIENT IN SR, HR IN THE 90S. SBP IN THE 120S. 1+ EDEMA NOTED IN BILAT HANDS AND BLES. ABDOMEN MILDLY DISTENDED, SOFT, WITH HYPOACTIVE BOWEL SOUNDS. PATIENT DOES GRIMACE WHEN ABDOMEN IS TOUCHED. RECTAL TUBE IN PLACE DRAINING BROWN COLORED, LIQUID STOOL; RECTAL TUBE OCCASIONALLY LEAKS. OG IN PLACE. TF INFUSING AT GOAL RATE. POOR DENTITION NOTED. TEMP WANG DRAINING DARK ORANGE COLORED URINE. SCATTERED BRUISES NOTED. REDDENED ELIS AND PERIANAL AREAS; COULD BE FROM OCCASIONAL RECTAL TUBE LEAKAGE. PROPOFOL INFUSING AT 60 MCG/ KG/ MINUTE, NS TKO. BED LOW, CALL LIGHT IN REACH. WILL CONTINUE TO MONITOR PATIENT FREQUENTLY THROUGHOUT SHIFT.
--- NOTE | 2022-01-09 12:00 | NUR ---
PATIENT HAS TEMP OF 101.1 DEGREES FAHRENHEIT. NO CHANGES TO VENT SETTINGS. HR IN THE 90S. SBP IN THE 140S. NO NEURO CHANGES. NO OTHER ACUTE CHANGES TO NOTE ON AT THIS TIME. WILL CONTINUE TO MONITOR.
--- NOTE | 2022-01-09 12:32 | NUR ---
DR. MORRIS UPDATED ON PATIENT STATUS. INFORMED THAT PATIENT WBC INCREASED TODAY AT 14.7. INFORMED THAT PHOS LOW AT 2.4 AND IONIZED CALCIUM LOW AT 0.95 THIS AM. INFORMED THAT PATIENT HAD TMAX OF 100.8 DEGREES FAHRENHEIT ON INFORMATION SECURITY. DR. MORRIS TO ROOM. PROPOFOL PLACED ON SB AND DR. MORRIS CHANGED VENT SETTINGS OVER TO SPONTANEOUS PRESSURE SUPPORT. WEAN LAST AROUND 5 MINUTES. PATIENT PLACED BACK ON AC SETTINGS AND PROPOFOL FOR RR IN THE 60S.
--- NOTE | 2022-01-09 16:00 | NUR ---
PATIENT HAS TEMP OF 101.2 DEGREES FAHRENHEIT. NO CHANGES TO NEURO STATUS. NO CHANGES TO VENT SETTINGS. HR IN THE LOW 100S. SBP IN THE 140S. PATIENT APPEARS COMFORTABLE. NO OTHER ACUTE CHANGES TO NOTE ON AT THIS TIME.
--- NOTE | 2022-01-09 19:00 | NUR ---
ASSUME CARE: I have assumed care of this patient.
--- NOTE | 2022-01-09 19:14 | NUR ---
SHIFT SUMMARY PATIENT REMAINED INTUBATED AND ON SEDATION. PATIENT REMAINED FOLLOWING COMMANDS. TMAX OF 101.4 DEGREES FAHRENHEIT. PATIENT REMAINED ON VENT SETTINGS AC 16, TV 500, PEEP 5 AND 30%. PATIENT REMAINED SR TO ST, HR 90S TO LOW 100S. SBP 120S TO 150S. TF REMAINED AT GOAL RATE. 50 MLS STOOL OUT OF RECTAL TUBE. RECTAL TUBE LEAKED TWICE- ROUGHLY 50 MLS OUT IN LEAKAGE. 1200 URINE OUT FROM WANG. NO CHANGES TO SKIN NOTED. PATIENT REPOSITIONED Q2H. PROPOFOL REMAINS AT 60 MCG/ KG/ MINUTE, NS TKO. PATIENT HAD SEDATION VACATION AND WEAN FOR ROUGHLY 5 MINUTES BUT PLACED BACK ON AC SETTINGS FOR RR IN THE 60S. 2 G CALCIUM GIVEN FOR IONIZED CALCIUM OF 0.95 THIS AM. BLOOD SUGARS 80S TO 90S. PATIENT APPEARS COMFORTABLE AT THIS TIME. REPORT GIVEN TO DEPUTY BUILDING GUARD NURSE.
[2022-01-10 00:12] LABS: Vancomycin, Trough 18.4 ug/mL (5.0-10.0)
[2022-01-10 04:21] LABS: PCO2 Arterial 30.3 mmHg (35-45); PO2 Arterial 73.2 mmHg (80-100)
[2022-01-10 05:30] LABS: Hematocrit 27.9 % (37.0-53.0); Hemoglobin 9.6 g/dL (13.5-17.5); Mean Corpuscular HGB 30.5 pg (26.0-34.0); Mean Corpuscular HGB Conc 34.4 g/dL (31.5-36.5); Mean Corpuscular Volume 89 fL (80-100); Mean Platelet Volume 10.3 fL (9.1-12.4); Platelet Count 288 K/mm3 (150-400); RDW Coefficient Variation 15.9 % (11.7-14.2); RDW Standard Deviation 51.6 fL (35.1-46.3); Red Blood Cell Count 3.15 M/mm3 (4.30-5.90); White Blood Cell Count 17.56 K/mm3 (4.00-11.30)
[2022-01-10 05:56] LABS: BAND PERCENT MAN 4 % (0-8); BASOPHILS PERCENT MAN 0 % (0-2); EOSINOPHILS PERCENT MAN 0 % (0-6); LYMPHOCYTES PERCENT MAN 4 % (21-46); METAMYELOCYTE ABSOLUTE MAN 0.17 K/mm3 (0.00-0.00); METAMYELOCYTE PERCENT MAN 1 % (0-0); MONOCYTES ABSOLUTE MAN 0.87 K/mm3 (0.16-1.47); MONOCYTES PERCENT MAN 5 % (4-13); MYELOCYTE ABSOLUTE MAN 0.35 K/mm3 (0.00-0.00); MYELOCYTE PERCENT MAN 2 % (0-0); NEUTROPHILS ABSOLUTE MAN 15.45 K/mm3 (1.96-9.15); SEG NEUTROPHILS PERCENT MAN 84 % (41-73); TOTAL CELLS COUNTED 100
[2022-01-10 06:02] LABS: Magnesium, Blood 2.5 mg/dL (1.6-2.4)
[2022-01-10 06:06] LABS: Albumin, Blood 1.2 g/dL (3.4-5.0); Albumin/Globulin Ratio 0.3 (0.8-1.8); Bilirubin, Total 1.1 mg/dL (0.1-1.0); Calcium, Blood 8.5 mg/dL (8.5-10.1); Creatinine, Blood 0.47 mg/dL (0.60-1.20); Globulin, Blood 4.5 g/dL (2.2-4.0); Phosphorus, Blood 3.3 mg/dL (2.5-4.9); Potassium, Blood 3.7 mmol/L (3.5-5.5); Total Protein, Blood 5.7 g/dL (6.4-8.2)
--- NOTE | 2022-01-10 07:15 | NUR ---
PT WITH ONE EPISODE OF DESATURATION AFTER TURN NEAR MIDNOC, COPIOUS SECRETIONS WERE SUCTIONED FROM ETT BY WELFARE AIDE AND RESPIRATORY THERAPY FOLLOWING WHICH SATS RETURNED TO HIGH 90S WITH VENT SETTINGS UNCHANGED. PT CONTINUES TO FOLLOW COMMANDS WITH ORAL CARE, TOLERATES TURNS AND FOLLOWS DIRECTIONS TO KEEP HANDS AWAY FROM ETT THROUGHOUT REPOSITIONING, DOES NOT ANSWER YES/NO QUESTIONS FOR THIS RN. LUNGS INTERMITTENTLY RHONCHOUROUS THROUGHOUT IMPROVES FOLLOWING SUCTIONING. VENT SETTINGS CONTINUE AC/VC, 16, 500, PEEP 5, FIO2 30%. PRESSURES MAINTAINING, EDEMA WITH SMALL IMPROVEMENT THIS SHIFT. GOOD URINE OUTPUT, TUBE FEED CONTINUES, MAX RESIDUAL OF 25 ML. RECTAL TUBE CONTINUES WITH FREQUENT LEAKING, BARRIER CREAM APPLIED TO SURROUNDING AREAS WITH EACH TURN.
--- NOTE | 2022-01-10 08:45 | NUR ---
INITIAL ASSESSMENT PATIENT INTUBATED AND ON SEDATION. PATIENT RESPONDS TO VERBAL STIMULI AND ABLE TO FOLLOW SIMPLE COMMANDS. PATIENT WEAK BUT ABLE TO MOVE ALL EXTREMITIES. PATIENT HAS CORE TEMP OF 100.4 DEGREES FAHRENHEIT. PATIENT ON VENT SETTINGS OF AC 16, TV 500, PEEP 5 AND 30% FIO2. LUNGS CLEAR THROUGHOUT. SMALL AMOUNT OF THICK PINK/ GONZALEZ SPUTUM NOTED FROM ETT WITH SUCTIONING. PATIENT IN SR TO ST, HR 90S TO LOW 100S. SBP 1-TEENS TO 120S. 1+ EDEMA NOTED TO BLES. 2+ EDEMA NOTED TO BILAT HANDS. ABD SOFT, TENDER, NORMOACTIVE BOWEL SOUNDS NOTED. TF INFUSING AT GOAL RATE. RECTAL TUBE IN PLACE BUT HAS OCCASIONAL LEAKAGE. WANG DRAINING DARK ORANGE COLORED URINE. SCATTERED BRUISES NOTED. ELIS/ PERIANAL AREAS REDDENED. PATIENT BEING REPOSITIONED Q2H. PROPOFOL INFUSING AT 60 MCG/ KG/ MINUTE, NS TKO. BED LOW, CALL LIGHT IN REACH. WILL CONTINUE TO MONITOR PATIENT FREQUENTLY THROUGHOUT SHIFT.
--- NOTE | 2022-01-10 09:00 | NUR ---
DR. BARONE UPDATED ON PATIENT STATUS. INFORMED THAT TMAX OF 101.8 ON RADIO RIGGER. INFORMED THAT WBC INCREASED TODAY AT 17.56. INFORMED THAT PATIENT HAD SEDATION VACATION AND WEAN YESTERDAY AND THAT IT LASTED 5 MINUTES BECAUSE OF RR IN THE 60S. STATED NO WEAN OR SEDATION VACATION TODAY. NO OTHER ORDERS RECEIVED AT THIS TIME.
--- NOTE | 2022-01-10 12:37 | NUR ---
TEMP OF 101.3 DEGREES FAHRENHEIT. PRN TYLENOL GIVEN. FAN ON PATIENT. HR IN THE LOW 100S. SBP IN THE 130S. FIO2 AT 40%. BLOOD SUGAR 95. NO OTHER ACUTE CHANGES TO NOTE ON AT THIS TIME.
--- NOTE | 2022-01-10 13:22 | NUR ---
Echocardiogram completed.
--- NOTE | 2022-01-10 19:00 | NUR ---
ASSUMED CARE OF PT, REPORT RECEIVED. PT IS RESTING QUIELTY, VENT SETTINGS REVIEWED WITH OFFGOING RN, AC/VC , FIO2 NOW NOTED AT 40%, PEEP 5, CURRENT SATS MID TO UPPER 90S. OCCASIONAL PVC NOTED ON MONITOR. PRESSURES MAINTAINING. PLAN IS TO TRANSFER TO [facility] WHEN BED AVAILABLE, DISCUSSED WITH DR BARONE WHO IS PRESENT IN UNIT AT THIS TIME.
--- NOTE | 2022-01-10 19:31 | NUR ---
SHIFT SUMMARY PATIENT REMAINED INTUBATED AND ON SEDATION. PATIENT HAD TMAX OF 101.3 DEGREES FAHRENHEIT. PATIENT REMAINED FOLLOWING SIMPLE COMMANDS AND MOVING ALL EXTREMITIES. PATIENT INCREASED FROM 30 TO 40% FIO2 ON VENT. HR 80S TO LOW 100S. SBP 1-TEENS TO 140S. 350 MLS OUT FROM RECTAL TUBE. TF REMAINED AT GOAL. 1100 MLS OUT OF WANG. NO CHANGES TO SKIN NOTED. PROPOFOL INFUSING AT 60 MCG/ KG/ MINUTE, NS TKO. ECHO PERFORMED THIS SHIFT. PATIENT PENDING TRANSFER TO [facility]. REPORT GIVEN TO ONCOMING CIVIL STRUCTURAL DESIGNER NURSE.
--- NOTE | 2022-01-10 21:43 | NUR ---
PT AWAKE, STARING AROUND ROOM, VENT ALARM SOUNDING FOR INCREASED RATE AND DECREASED TIDAL VOLUME. ATIVAN ADMIN, WILL MONITOR.
--- NOTE | 2022-01-10 23:35 | NUR ---
REACH CREW ARRIVED AND PT PACKAGED, REPORT GIVEN TO RYLIE TAPIA AT [facility], PT OUT TO REACH HELICOPTER AT [id number]. PT SPOUSE ANDREW UPDATED.
== END 2022-01-11 00:01 | disposition short-term general hospital (02) | DRG 870 ==
LOC: ER 07:12 → ICUW 12:06
PROVIDERS: Internal Medicine; Internal Medicine Critical Care Medicine; Student in an Organized Health Care Education/Training Program; ADMIT Internal Medicine
PROC: 3E033XZ Introduction of Vasopressor into Peripheral Vein, Percutaneous Approach (ICD-10-PCS; 2022-01-02)
PROC: 3E03329 Introduction of Other Anti-infective into Peripheral Vein, Percutaneous Approach (ICD-10-PCS; 2022-01-02)
PROC: 05HC33Z Insertion of Infusion Device into Left Basilic Vein, Percutaneous Approach (ICD-10-PCS; 2022-01-02)
PROC: 5A1955Z Respiratory Ventilation, Greater than 96 Consecutive Hours (ICD-10-PCS; principal; 2022-01-04)
PROC: 0BH17EZ Insertion of Endotracheal Airway into Trachea, Via Natural or Artificial Opening (ICD-10-PCS; 2022-01-04)
DX: A41.02 Sepsis due to Methicillin resistant Staphylococcus aureus (principal); R65.21 Severe sepsis with septic shock; I26.90 Septic pulmonary embolism without acute cor pulmonale; I33.0 Acute and subacute infective endocarditis; J96.01 Acute respiratory failure with hypoxia; G92.8 Other toxic encephalopathy; I21.A1 Myocardial infarction type 2; J15.212 Pneumonia due to Methicillin resistant Staphylococcus aureus; J85.1 Abscess of lung with pneumonia; E87.1 Hypo-osmolality and hyponatremia; I76 Septic arterial embolism; Z20.822 Contact with and (suspected) exposure to COVID-19; Z78.1 Physical restraint status; E83.39 Other disorders of phosphorus metabolism; E87.6 Hypokalemia; E83.51 Hypocalcemia; R19.5 Other fecal abnormalities; I66.9 Occlusion and stenosis of unspecified cerebral artery; I07.1 Rheumatic tricuspid insufficiency; D69.6 Thrombocytopenia, unspecified; I48.91 Unspecified atrial fibrillation; F10.20 Alcohol dependence, uncomplicated; F15.10 Other stimulant abuse, uncomplicated
CPT/HCPCS: 0241U; 31500; 36415; 36569; 36600; 51702; 70450; 71045; 71250; 80048; 80053; 80069; 80162; 80202; 81001; 82140; 82248; 82330; 82803; 82947; 83605; 83690; 83735; 83880; 84100; 84145; 84295; 84484; 85025; 85027; 85520; 85610; 87040; 87070; 87077; 87086; 87147; 87186; 87205; 87493; 93005; 93010; 93306; 93308; 94002; 94003; 94760; 96361; 96365; 96367; 96375; 96376; 99285-25; A9270; C1751; C9113; G0480; J0330; J0456; J0610; J0696; J1160; J1630; J1644; J1650; J1885; J2020; J2060; J2250; J2704; J3370; J3411; J3475; J3480; J7030; J7040; J7050; J7060; J7120; P9046